=== PATIENT | male | born 1950 | race Caucasian/White ===

== ENCOUNTER 2017-12-31 17:46 | Emergency (ER) | payer MEDICARE, BC ==
[2017-12-31 19:10] VITALS: BP 147/87
--- NOTE | 2017-12-31 19:39 | EDM.PDOC ---
ED HPI GENERAL MEDICAL PROBLEM - General Chief Complaint: General Stated Complaint: RESPIRATORY SYMPTOMS Time Seen by Provider: 12/31/17 19:10 Source of Information: Reports: Patient, RN Notes Reviewed History Limitations: Reports: No Limitations - History of Present Illness INITIAL COMMENTS - FREE TEXT/NARRATIVE: 67-year-old gentleman presents emergency department today with complaint of fever and cough he's been ill for about 24 hours he feels he might be getting better, but is concerned no other symptoms - Related Data Allergies Allergy/AdvReac Type Severity Reaction Status Date / Time No Known Allergies Allergy Verified 06/23/15 07:40 Home Meds: Home Meds Acetaminophen [Tylenol] 1 - 2 tab PO Q6H PRN 06/20/15 [History] Ibuprofen [Advil] 200 mg PO Q6H PRN 06/20/15 [History] Past Medical History - Past Health History Medical/Surgical History: Denies Medical/Surgical History Social & Family History - Family History Family Medical History: Noncontributory - Tobacco Use Smoking Status *Q: Never Smoker Second Hand Smoke Exposure: No - Caffeine Use Caffeine Use: Reports: Coffee - Recreational Drug Use Recreational Drug Use: No ED ROS GENERAL - Review of Systems Review Of Systems: See Below Constitutional: Reports: Fever, Chills HEENT: Reports: No Symptoms Respiratory: Reports: Cough Cardiovascular: Reports: No Symptoms GI/Abdominal: Reports: No Symptoms : Reports: No Symptoms Musculoskeletal: Reports: No Symptoms Skin: Reports: No Symptoms Neurological: Reports: No Symptoms ED EXAM, GENERAL - Physical Exam Exam: See Below Free Text/Narrative:: General: Male, not in any distress, alert and oriented x3 HEENT: head is atraumatic normocephalic, eyes pupils equal round reactive to light, sclera clear no conjunctivitis appreciated. Ears tympanic membranes clear and mckenzie landmarks and light reflex are present bilaterally canals are clear. Nose no septal deviation, nares are clear, no blood present. Mouth mucosa is moist and pink no erythema or exudate noted in soft palate, tongue is midline uvula is midline, dentition is intact. Neck: Supple no thyromegaly no tracheal deviation. Nodes: Cervical nodes subclavicular nodes nontender no palpable lymphadenopathy noted. Lungs: clear to auscultation bilaterally with symmetrical respirations, no adventitious noise appreciated. CV: Regular rate and rhythm S1 and S2 appreciated no murmurs rubs or gallops noted. Abdomen: Soft, nontender, no palpable masses or organomegaly appreciated, no distention no guarding bowel sounds are present, . Neuro: Cranial nerves II through XII grossly intact Skin: Warm and dry, intact Extremities: No lower extremity edema appreciated, Course - Vital Signs Last Recorded V/S: Last Vital Signs Temp 100.2 F 12/31/17 19:08 Pulse 78 12/31/17 19:08 Resp 16 12/31/17 19:08 BP 147/87 H 12/31/17 19:08 Pulse Ox 98 12/31/17 19:08 - Orders/Labs/Meds Labs: Laboratory Tests 12/31/17 12/31/17 12/31/17 Range/Units 19:53 19:53 19:53 WBC 6.9 (4.5-11.0) K/uL RBC 4.73 (4.30-5.90) M/uL Hgb 14.9 (12.0-15.0) g/dL Hct 44.4 (40.0-54.0) % MCV 94 (80-98) fL MCH 32 H (27-31) pg MCHC 34 (32-36) % Plt Count 214 (150-400) K/uL Neut % (Auto) 51 (36-66) % Lymph % (Auto) 19 L (24-44) % [place]as[place] % (Auto) 17 H (2-6) % Eos % (Auto) 11 H (2-4) % Baso % (Auto) 1 (0-1) % Sodium 141 (140-148) mmol/L Potassium 4.4 (3.6-5.2) mmol/L Chloride 104 (100-108) mmol/L Carbon Dioxide 28 (21-32) mmol/L Anion Gap 9.5 (5.0-14.0) mmol/L BUN 13 (7-18) mg/dL Creatinine 1.2 (0.8-1.3) mg/dL Est Cr Clr Drug Dosing 58.58 mL/min Estimated GFR (MDRD) > 60 (>60) Glucose 120 H (74-106) mg/dL Lactic Acid 1.2 (0.4-2.0) mmol/L Calcium 9.0 (8.5-10.1) mg/dL Total Bilirubin 0.6 (0.2-1.0) mg/dL AST 39 H (15-37) U/L ALT 38 (12-78) U/L Alkaline Phosphatase 70 (46-116) U/L Total Protein 7.6 (6.4-8.2) g/dL Albumin 3.8 (3.4-5.0) g/dL Globulin 3.8 H (2.3-3.5) g/dL Albumin/Globulin Ratio 1.0 L (1.2-2.2) Departure - Departure Time of Disposition: 20:56 Disposition: Home, Self-Care 01 Condition: Good Clinical Impression: Influenza B - Discharge Information Referrals: Som Paulson [facility] [Primary Care Provider] - Forms: ED Department Discharge Additional Instructions: Take full course of Tamiflu, use Tylenol or Motrin as needed for fever control, Please followup with your primary care provider in 3-4 days if not better, please call return to the emergency department with worsening of symptoms. - Assessment/Plan Plan: Assessment Acuity = acute Site and laterality = flu Etiology = influenza B Manifestations = cough, fever Location of injury = Home Lab values = CBC, CMP, lactic acid within normal limits, positive for influenza B Plan Treat with Tamiflu 75 mg by mouth twice a day 5 days follow-up with primary care in 3-4 days if no improvement This note was dictated using [employer] voice recognition software please call with any questions on syntax or birdie.
== END 2017-12-31 21:00 | disposition home or self-care (01) ==
LOC: JP.ED 17:46
DX: J10.1 Influenza due to other identified influenza virus with other respiratory manifestations (principal)
CPT/HCPCS: 36415; 80053; 83605; 85025; 87804; 99283; 99284

== ENCOUNTER 2021-09-14 07:56 | Day surgery (SDC) | payer BC, MEDICARE ==
[~2021-09-14 07:56] MED LIST: Midazolam 1 MG/ML 2 ML SDV ONE; Propofol 200 MG/20 ML SDV ONE; fentaNYL 100 MCG/2 ML SDV ONE
[2021-09-14] MEDS ORDERED: Sodium Chloride 0.9% 1,000 ML IV SCH (08:30)
[2021-09-14 11:17] VITALS: BP 139/80; PULSE 74
--- NOTE | 2021-09-14 12:09 | OR ---
DATE OF PROCEDURE: 09/14/2021 SURGEON: Andrei Luz MD PROCEDURES: 1. Esophagogastroduodenoscopy. 2. Colonoscopy. FINDINGS: 1. Irregular plaque-like lesion at GE junction concerning for reflux disease (biopsied using cold biopsy forceps in addition to all 4 quadrants). 2. Diverticulosis, mild, limited to sigmoid colon associated with a tortuous sigmoid colon. COMPLICATIONS: None. LIVING COACH: None. PREOPERATIVE DIAGNOSIS: Dysphagia/screening colonoscopy. POSTOPERATIVE DIAGNOSIS: Dysphagia/screening colonoscopy. RISKS: Risks, benefits, alternatives, and limitations including, but not limited to infection, bleeding, perforation, false positives, false negatives were explained to the patient and he wished to proceed. PROCEDURE IN DETAIL: The patient was placed in left lateral decubitus position. The EGD scope was introduced and advanced atraumatically to the second part of the duodenum. No evidence of duodenitis or ulceration was noted. Within the stomach, the patient had very mild gastritis. No ulceration was noted. The GE junction had an irregular Z-line concerning for reflux disease. This was biopsied in all 4 quadrants using cold biopsy forceps. The remainder of the air was removed from the stomach. The esophagus was inspected without abnormality. Digital rectal exam was performed next. The scope was introduced and advanced atraumatically to the ileocecal valve. A photo was taken of the appendiceal orifice. Scope was brought back to the ascending, transverse, descending colon, and retroflexed. The patient was noted to have tortuous sigmoid colon. In addition, he had diverticulosis not associated with diverticulitis or bleeding. No abnormalities on retroflexion. The diverticulosis was described as very mild, limited to sigmoid colon. Greater than 8 minutes was spent removing the scope. The prep was acceptable, 90% of the luminal surface could be seen. The patient tolerated the procedure well. Andrei Luz MD /[id number]
== END 2021-09-14 11:35 | disposition home or self-care (01) ==
LOC: JP.SDS 07:56
PROVIDERS: ATTEND Surgery
DX: Z12.11 Encounter for screening for malignant neoplasm of colon (principal); K22.89 Other specified disease of esophagus; K57.30 Diverticulosis of large intestine without perforation or abscess without bleeding; K22.10 Ulcer of esophagus without bleeding; Z86.010 Personal history of colon polyps
CPT/HCPCS: 43239; 88305; G0105; J2250; J2704; J3010; J7030